=== PATIENT | female | born 1945 | race Caucasian/White ===

== ENCOUNTER 2017-06-18 08:03 | Emergency (ER) | payer OTHER ==
[~2017-06-18] VITALS: Ht 160 cm; Wt 81.6 kg
[2017-06-18 08:03] VITALS: BP_SYST 161
[~2017-06-18 08:03] MED LIST: ZOLP10TA2 PO
[2017-06-18] MEDS ORDERED: KETOROLAC TROMETHAMINE 60 MG/2 ML VIAL IM ONE (09:15)
[2017-06-18 09:20] LABS: BILIRUBIN,URINE NEGATIVE (NEGATIVE); BLOOD, URINE NEGATIVE (NEGATIVE); CLARITY/URINE CLEAR (CLEAR); COLOR,URINE YELLOW (YELLOW); GLUCOSE,URINE NEGATIVE (NEGATIVE); KETONES,URINE NEGATIVE (NEGATIVE); LEUKOCYTE ESTERASE ,URINE NEGATIVE (NEGATIVE); NITRITE, URINE NEGATIVE (NEGATIVE); PH,URINE 5.5 (5.0-8.0); PROTEIN URINE NEGATIVE (NEGATIVE); UROBILINOGEN,URINE 0.2 (0.2-1.0)
[2017-06-18 09:54] VITALS: BP_SYST 145
== END 2017-06-18 09:53 | disposition home or self-care (01) ==
LOC: SED 08:03
DX: M54.5 Low back pain (principal); E78.5 Hyperlipidemia, unspecified
CPT/HCPCS: 81003; 96372; 99283; J1885

== ENCOUNTER 2019-10-15 12:19 | Emergency (ER) | payer OTHER ==
[~2019-10-15] VITALS: Ht 157.5 cm; Wt 74.8 kg
[2019-10-15 12:19] VITALS: BP_SYST 142
--- NOTE | 2019-10-15 12:32 | NUR ---
Patient triaged and placed in waiting room. VSS and patient appears in no acute distress at this time. Awaiting available bed, and MD notified of need for MSE.
--- NOTE | 2019-10-15 13:00 | NUR ---
Patient is awake, alert, and oriented x4. Patient reports waking up feeling dizzy, she consulted [employer], then became worried that she was having a stroke, and drove to the ER. NIH Stroke scale performed with a score of 0.
--- NOTE | 2019-10-15 13:00 | NUR ---
Patient to [facility] for evaluation. Side rails up.
[2019-10-15 13:38] LABS: BASOPHILS # (AUTO) 0.1 K/uL (0.0-0.2); EOSINOPHILS # (AUTO) 0.2 K/uL (0.0-0.4); LYMPHOCYTES # (AUTO) 2.1 K/uL (1.0-5.5); LYMPHOCYTES % (AUTO) 30.5 % (20.5-51.5)
[2019-10-15 13:46] LABS: ANION GAP 7 (5-15); CALCIUM 8.7 mg/dL (8.4-11.0); CHLORIDE 105 mmol/L (98-107); CREATININE 0.78 mg/dL (0.55-1.30); GLUCOSE 111 mg/dL (70-99); SODIUM SERUM 139 mmol/L (136-145); UREA NITROGEN, BLOOD 21 mg/dL (8-21)
[2019-10-15 13:48] LABS: BASOPHILS % (AUTO) 1.6 % (0.0-2.0); EOSINOPHILS % (AUTO) 2.9 % (0.0-4.0); HEMATOCRIT 40.6 % (36-48); HEMOGLOBIN 13.6 g/dL (12.0-16.0); MEAN CORPUSCULAR HEMOGLOBIN 32 pg (27-31); MEAN CORPUSCULAR HGB CONC 34 % (32-36); MEAN CORPUSCULAR VOLUME 95 fL (79.0-98.0); MONOCYTES # (AUTO) 0.7 K/uL (0.0-1.0); MONOCYTES % (AUTO) 10.5 % (1.7-9.3); NEUTROPHILS # (AUTO) 3.8 K/uL (1.8-7.7); NEUTROPHILS % (AUTO) 54.5 % (40.0-70.0); PLATELET COUNT (AUTO) 174 K/uL (130-430); RED BLOOD CELL COUNT(AUTO) 4.26 MIL/uL (4.2-6.2); RED CELL DISTRIBUTION WIDTH 13.9 % (9.0-15.0)
[2019-10-15 13:54] LABS: ALANINE AMINOTRANSFERASE 31 U/L (12-78); ALBUMIN 3.8 g/dL (3.4-4.8); ASPARTATE AMINOTRANSFERASE 20 U/L (10-37); TOTAL BILIRUBIN 0.7 mg/dL (0.0-1.0)
--- NOTE | 2019-10-15 14:30 | NUR ---
ER Dr. Chou at bedside examining patient.
[2019-10-15] MEDS ORDERED: KETOROLAC TROMETHAMINE 30 MG VIAL IM ONE (14:45)
[2019-10-15 14:58] VITALS: BP_SYST 142
--- NOTE | 2019-10-15 14:58 | NUR ---
Patient given written and verbal discharge instructions and verbalizes understanding. ER MD discussed with patient the results and treatment provided. Patient in stable condition. ID arm band removed. Rx of robaxin given. Patient educated on pain management and to follow up with PMD. Pain Scale 5/10, Dr. Chou is aware. Opportunity for questions provided and answered. Medication side effect fact sheet provided.
== END 2019-10-15 14:58 | disposition home or self-care (01) ==
LOC: SED 12:19
DX: G44.209 Tension-type headache, unspecified, not intractable (principal)
CPT/HCPCS: 36415; 70450; 80053; 81002; 84484; 85025; 93005; 96372; 99285; J1885

== ENCOUNTER 2022-02-01 09:14 | Emergency (ER) | payer OTHER ==
[~2022-02-01] VITALS: Ht 162.6 cm; Wt 85.3 kg
[~2022-02-01 09:14] MED LIST changes: +ASA81 PO; +PRED20TA PO; +PRO40 PO
[2022-02-01 09:40] VITALS: BP_SYST 141
--- NOTE | 2022-02-01 09:50 | NUR ---
76 YR OLD FEMALE WITH COMPLAINT OF CHEST WALL PAIN WITH DIFFICULTY TAAKING A DEEP BREATH AFTER EXCERSING IN A POOL FOUR DAUS AGO. PT STATES SHE FEELS SORE AND IS CONCERNED ABOUT BRUISING AND PAIN. PT DENIES ANY NAUSEA OR VOMITING. PT PLACED IN GOWN, PENDING MD EVALUATION.
[2022-02-01 10:44] LABS: BASOPHILS % (AUTO) 0.4 % (0.0-2.0); EOSINOPHILS # (AUTO) 0.2 K/uL (0.0-0.4); EOSINOPHILS % (AUTO) 1.7 % (0.0-4.0); HEMATOCRIT 34.7 % (36-48); HEMOGLOBIN 11.7 g/dL (12.0-16.0); LYMPHOCYTES # (AUTO) 1.8 K/uL (1.0-5.5); LYMPHOCYTES % (AUTO) 19.2 % (20.5-51.5); MEAN CORPUSCULAR HEMOGLOBIN 36 pg (27-31); MEAN CORPUSCULAR HGB CONC 34 % (32-36); MEAN CORPUSCULAR VOLUME 106 fL (79.0-98.0); MONOCYTES # (AUTO) 0.8 K/uL (0.0-1.0); MONOCYTES % (AUTO) 8.3 % (1.7-9.3); NEUTROPHILS # (AUTO) 6.6 K/uL (1.8-7.7); NEUTROPHILS % (AUTO) 70.4 % (40.0-70.0); PLATELET COUNT (AUTO) 219 K/uL (130-430); RED BLOOD CELL COUNT(AUTO) 3.27 MIL/uL (4.2-6.2); WHITE BLOOD COUNT (AUTO) 9.4 K/uL (4.8-10.8)
--- NOTE | 2022-02-01 11:20 | NUR ---
Pt ambulated to room 5.
--- NOTE | 2022-02-01 11:45 | NUR ---
Dr. Govea at bedside to assess pt.
[2022-02-01] MEDS ORDERED: KETOROLAC TROMETHAMINE 60 MG/2 ML VIAL IM ONE (12:00)
[2022-02-01 12:41] LABS: ANION GAP 8 (5-15); CHLORIDE 103 mmol/L (98-107); CREATININE 1.05 mg/dL (0.55-1.30); GLUCOSE 119 mg/dL (70-99); POTASSIUM 4.6 mmol/L (3.5-5.1); SODIUM SERUM 139 mmol/L (136-145); UREA NITROGEN, BLOOD 26 mg/dL (8-21)
[2022-02-01 12:49] LABS: ALANINE AMINOTRANSFERASE 31 U/L (12-78); ALBUMIN 3.9 g/dL (3.4-4.8); ASPARTATE AMINOTRANSFERASE 25 U/L (10-37); TOTAL BILIRUBIN 0.4 mg/dL (0.0-1.0)
[2022-02-01] MEDS ORDERED: NEU300 PO ×2 (12:56→13:53)
[2022-02-01] MEDS ORDERED: LIDO1ADH22 TP (12:56)
[2022-02-01] MEDS ORDERED: ACET-2634 PO ×2 (12:56→13:53)
[2022-02-01] MEDS ORDERED: NAPR-688 PO ×2 (12:56→13:53)
[2022-02-01] MEDS ORDERED: LIDO1ADH77 TD (13:53)
[2022-02-01 14:00] VITALS: BP_SYST 134
--- NOTE | 2022-02-01 14:02 | NUR ---
Patient given written and verbal discharge instructions and verbalizes understanding. ER MD discussed with patient the results and treatment provided. Patient in stable condition. ID arm band removed. Rx of lidocaine patch, tylenol, naproxen, gabapentin given. Patient educated on pain management and to follow up with PMD. Pain Scale . Opportunity for questions provided and answered. Medication side effect fact sheet provided.
== END 2022-02-01 11:20 | disposition home or self-care (01) ==
LOC: SED 09:14
DX: R07.89 Other chest pain (principal); E78.5 Hyperlipidemia, unspecified; M35.3 Polymyalgia rheumatica; M79.604 Pain in right leg; M79.605 Pain in left leg; Z79.899 Other long term (current) drug therapy
CPT/HCPCS: 36415; 71045; 80053; 84484; 85025; 93005; 96372; 99285; J1885

== ENCOUNTER 2022-05-07 18:22 | Emergency (ER) | payer OTHER ==
[~2022-05-07] VITALS: Ht 160 cm; Wt 79.4 kg
[~2022-05-07 18:22] MED LIST changes: +ACET-2634 PO; +LIDO1ADH22 TP; +LIDO1ADH77 TD; +NAPR-688 PO; +NEU300 PO
[2022-05-07 18:24] VITALS: BP_SYST 125
[2022-05-07] MEDS ORDERED: MORPHINE 4 MG INJ. 4 MG/ML VIAL IVP ONE (19:45)
[2022-05-07 20:08] LABS: BASOPHILS # (AUTO) 0.1 K/uL (0.0-0.2); BASOPHILS % (AUTO) 1.1 % (0.0-2.0); EOSINOPHILS # (AUTO) 0.1 K/uL (0.0-0.4); EOSINOPHILS % (AUTO) 0.9 % (0.0-4.0); HEMATOCRIT 32.8 % (36-48); LYMPHOCYTES # (AUTO) 2.1 K/uL (1.0-5.5); LYMPHOCYTES % (AUTO) 22.5 % (20.5-51.5); MEAN CORPUSCULAR VOLUME 102 fL (79.0-98.0); MONOCYTES % (AUTO) 10.8 % (1.7-9.3); NEUTROPHILS # (AUTO) 6.2 K/uL (1.8-7.7); NEUTROPHILS % (AUTO) 64.7 % (40.0-70.0); PLATELET COUNT (AUTO) 239 K/uL (130-430); RED BLOOD CELL COUNT(AUTO) 3.23 MIL/uL (4.2-6.2); RED CELL DISTRIBUTION WIDTH 13.5 % (9.0-15.0); WHITE BLOOD COUNT (AUTO) 9.5 K/uL (4.8-10.8)
[2022-05-07 20:22] LABS: ANION GAP 7 (5-15); CHLORIDE 102 mmol/L (98-107); CREATININE 1.32 mg/dL (0.55-1.30); GLUCOSE 106 mg/dL (70-99); POTASSIUM 4.7 mmol/L (3.5-5.1); SODIUM SERUM 138 mmol/L (136-145); UREA NITROGEN, BLOOD 33 mg/dL (8-21)
[2022-05-07 20:28] LABS: ALANINE AMINOTRANSFERASE 34 U/L (12-78); ALBUMIN 3.7 g/dL (3.4-4.8); ASPARTATE AMINOTRANSFERASE 16 U/L (10-37); TOTAL BILIRUBIN 0.6 mg/dL (0.0-1.0)
[2022-05-07 20:33] LABS: INR 1.1 (0.8-1.2); PROTHROMBIN TIME 10.9 SECS (9.5-12.5)
[2022-05-07] MEDS ORDERED: MANNITOL 25% 12.5GM/50 ML VIAL IVP ONE (21:45)
--- NOTE | 2022-05-07 21:45 | NUR ---
FRITZ DANGELO Kwaw at bedside assessing patient.
--- NOTE | 2022-05-07 21:55 | NUR ---
Received report from ROSAUAR Vergara; assuming care of patient at this time.
--- NOTE | 2022-05-07 21:58 | NUR ---
Per ER MD David VO; 12.5gm Mannitol to be held and not given to this patient.
--- NOTE | 2022-05-07 21:58 | NUR ---
TWO IV'S placed at this time. Both are # 22 gauges angiocaths 1st is placed to right forearm and 2nd IV placed on left AC. Use of asceptic technique. Opsite placed over site. Blood return noted. Flushed with 10 cc of normal saline. No evidence of infiltration noted. Patient tolerated well.
[2022-05-07] MEDS ORDERED: NACL 0.9% 1,000 ML IV ONE ×2 (22:30→23:45)
[2022-05-07] MEDS ORDERED: MORPHINE 4 MG INJ. 4 MG/ML VIAL ONE (22:36)
--- NOTE | 2022-05-07 23:21 | NUR ---
Patient resting comfortably in bed with side rails raised. Nad noted at this time.
--- NOTE | 2022-05-07 23:50 | NUR ---
Patient assisted with bedside commode.
--- NOTE | 2022-05-07 23:55 | NUR ---
Covid swab done and sent to lab.
--- NOTE | 2022-05-08 00:10 | NUR ---
Patient assisted with bedside commode at this time.
[2022-05-08] MEDS ORDERED: MORPHINE 4 MG INJ. 4 MG/ML VIAL IVP ONE (00:30)
--- NOTE | 2022-05-08 03:25 | NUR ---
Received call from Tammy from [facility]; who gave patient's room number 262A and phone number , to give report to receiving RN at [facility].
--- NOTE | 2022-05-08 03:46 | NUR ---
Called [facility] and gave report to Mariam Carreno RN. Patient is to go throught [facility] ED to register prior to going to room 262A.
[2022-05-08 04:40] VITALS: BP_SYST 129
--- NOTE | 2022-05-08 04:40 | NUR ---
Patient to be transferred to [facility]. Is being transferred due to higher level of care. Receiving facility has accepting physician and available space. ER physician has signed transfer form. Patient or responsible green party has agreed to transfer and signed form. Patient belongings inventoried and will be sent with patient. Copy of nursing notes, lab reports, EKG, Physicians Orders and X-rays to be sent with patient. Report called to Mariam Carreno RN at receiving facility. Receiving physician is Dr Sewell. [facility] ambulance service has been called for transfer. No ETA. Patient is in stable condition when [facility] ambulance service took over patient care. Nad noted at this time.
== END 2022-05-08 04:40 | disposition short-term general hospital (02) ==
LOC: SED 18:22
DX: S06.5X0A Traumatic subdural hemorrhage without loss of consciousness, initial encounter (principal); M25.552 Pain in left hip; Z20.822 Contact with and (suspected) exposure to COVID-19; Z79.899 Other long term (current) drug therapy; W01.0XXA Fall on same level from slipping, tripping and stumbling without subsequent striking against object, initial encounter; Y93.89 Activity, other specified; Y92.89 Other specified places as the place of occurrence of the external cause; Y99.8 Other external cause status
CPT/HCPCS: 99291; 70450; 96374; 96361 ×2; 87426; 80053; 85025; 85610; 85730; 36415; 72125; 72192; 96375; 76376; J2270 ×2; J7030 ×2

== ENCOUNTER 2022-08-25 13:42 | Emergency (ER) | payer OTHER ==
[~2022-08-25] VITALS: Ht 160 cm; Wt 77.1 kg
[2022-08-25 13:59] VITALS: BP_SYST 139
--- NOTE | 2022-08-25 14:00 | NUR ---
Patient to ER bed 03 to gown for evaluation. Side rails up.
--- NOTE | 2022-08-25 14:10 | NUR ---
PT CAME TO ER BY HERSELF. C/O SWELLLING/EDEMA TO LOWER EXTREMITIES, PT SAYS PATE ARE LEFT FROM HER SOCKS ON HER LOWER LEGS.SHE DID NOT TO PUT ON A GOWN DUE TO UNCERTAINTY OF ER STAY. PT VITAL SIGNS ARE STABLE. 133/51MMHG 96%SPO2 76HR 17RR ROOM AIR.
--- NOTE | 2022-08-25 14:20 | NUR ---
WAS AT BEDSIDE EVALUATED PT.
[2022-08-25 14:59] LABS: BASOPHILS # (AUTO) 0.1 K/uL (0.0-0.2); BASOPHILS % (AUTO) 1.5 % (0.0-2.0); EOSINOPHILS # (AUTO) 0.2 K/uL (0.0-0.4); EOSINOPHILS % (AUTO) 2.4 % (0.0-4.0); HEMATOCRIT 30.9 % (36-48); HEMOGLOBIN 10.4 g/dL (12.0-16.0); LYMPHOCYTES # (AUTO) 1.8 K/uL (1.0-5.5); LYMPHOCYTES % (AUTO) 24.1 % (20.5-51.5); MEAN CORPUSCULAR HEMOGLOBIN 34 pg (27-31); MEAN CORPUSCULAR HGB CONC 34 % (32-36); MEAN CORPUSCULAR VOLUME 102 fL (79.0-98.0); MONOCYTES # (AUTO) 0.9 K/uL (0.0-1.0); MONOCYTES % (AUTO) 11.8 % (1.7-9.3); NEUTROPHILS # (AUTO) 4.5 K/uL (1.8-7.7); NEUTROPHILS % (AUTO) 60.2 % (40.0-70.0); PLATELET COUNT (AUTO) 208 K/uL (130-430); RED BLOOD CELL COUNT(AUTO) 3.03 MIL/uL (4.2-6.2); RED CELL DISTRIBUTION WIDTH 16.4 % (9.0-15.0); WHITE BLOOD COUNT (AUTO) 7.4 K/uL (4.8-10.8)
[2022-08-25 15:18] LABS: ANION GAP 8 (5-15); CALCIUM 9.1 mg/dL (8.4-11.0); CHLORIDE 106 mmol/L (98-107); CREATININE 0.76 mg/dL (0.55-1.30); GLUCOSE 106 mg/dL (70-99); UREA NITROGEN, BLOOD 22 mg/dL (8-21)
[2022-08-25 15:22] LABS: ALANINE AMINOTRANSFERASE 20 U/L (12-78); ALBUMIN 3.4 g/dL (3.4-4.8); ASPARTATE AMINOTRANSFERASE 14 U/L (10-37); TOTAL BILIRUBIN 0.4 mg/dL (0.0-1.0)
[2022-08-25 15:23] LABS: C-REACTIVE PROTEIN QUANT < 0.2 mg/dL (0-0.5)
[2022-08-25 15:27] LABS: INR 1.1 (0.8-1.2); PROTHROMBIN TIME 11.1 SECS (9.5-12.5)
[2022-08-25 17:15] VITALS: BP_SYST 139
--- NOTE | 2022-08-25 17:17 | NUR ---
Patient given written and verbal discharge instructions and verbalizes understanding. ER MD discussed with patient the results and treatment provided. Patient in stable condition. ID arm band removed. No Rx given. Patient educated on pain management and to follow up with PMD. Pain Scale 0/10. Opportunity for questions provided and answered. Medication side effect fact sheet provided.
== END 2022-08-25 17:15 | disposition home or self-care (01) ==
LOC: SED 13:42
DX: R22.41 Localized swelling, mass and lump, right lower limb (principal); I10 Essential (primary) hypertension; Z79.899 Other long term (current) drug therapy
CPT/HCPCS: 36415; 71045; 73590-TC; 80053; 82550; 83880; 85025; 85610-TC; 85730-TC; 86140; 93971; 99285

== ENCOUNTER 2022-08-31 06:18 | Inpatient (IN) | payer OTHER ==
[~2022-08-31] VITALS: Ht 157.5 cm; Wt 79.4 kg
[2022-08-31 06:18] VITALS: BP_SYST 150
[2022-08-31] MEDS ORDERED: KETOROLAC TROMETHAMINE 60 MG/2 ML VIAL IM ONE (06:30)
[2022-08-31] MEDS ORDERED: MORPHINE 4 MG INJ. 4 MG/ML VIAL IVP ONE ×3 (07:30→14:00)
[2022-08-31] MEDS ORDERED: KETOROLAC TROMETHAMINE 30 MG VIAL IVP ONE (07:30)
[2022-08-31 08:01] LABS: BASOPHILS # (AUTO) 0.1 K/uL (0.0-0.2); EOSINOPHILS % (AUTO) 0.2 % (0.0-4.0); HEMATOCRIT 36.6 % (36-48); HEMOGLOBIN 11.9 g/dL (12.0-16.0); LYMPHOCYTES # (AUTO) 1.9 K/uL (1.0-5.5); MEAN CORPUSCULAR HEMOGLOBIN 33 pg (27-31); MEAN CORPUSCULAR HGB CONC 33 % (32-36); MEAN CORPUSCULAR VOLUME 102 fL (79.0-98.0); MONOCYTES # (AUTO) 0.9 K/uL (0.0-1.0); NEUTROPHILS # (AUTO) 11.5 K/uL (1.8-7.7); NEUTROPHILS % (AUTO) 79.8 % (40.0-70.0); PLATELET COUNT (AUTO) 236 K/uL (130-430); RED BLOOD CELL COUNT(AUTO) 3.59 MIL/uL (4.2-6.2); RED CELL DISTRIBUTION WIDTH 16.3 % (9.0-15.0); WHITE BLOOD COUNT (AUTO) 14.4 K/uL (4.8-10.8)
[2022-08-31 08:16] LABS: ANION GAP 13 (5-15); CALCIUM 9.6 mg/dL (8.4-11.0); CHLORIDE 103 mmol/L (98-107); CREATININE 0.95 mg/dL (0.55-1.30); GLUCOSE 120 mg/dL (70-99); UREA NITROGEN, BLOOD 23 mg/dL (8-21)
[2022-08-31 08:21] LABS: ALANINE AMINOTRANSFERASE 30 U/L (12-78); ALBUMIN 4.2 g/dL (3.4-4.8); ASPARTATE AMINOTRANSFERASE 30 U/L (10-37); TOTAL BILIRUBIN 0.5 mg/dL (0.0-1.0)
[2022-08-31] MEDS ORDERED: NAPR-1172 PO (13:51)
[2022-08-31] MEDS ORDERED: GABAPENTIN 300 MG CAPSULE PO PRN (14:15)
[2022-08-31] MEDS ORDERED: ACETAMINOPHEN 500 MG TABLET PO PRN ×2 (14:15)
[2022-08-31] MEDS ORDERED: MORPHINE 4 MG INJ. 4 MG/ML VIAL ONE (20:08)
[2022-08-31] MEDS: predniSONE 20 MG TABLET PO SCH (21:53)
[2022-08-31] MEDS: ZOLPIDEM TARTRATE 5 MG TABLET PO SCH (21:53)
[2022-08-31] MEDS: GABAPENTIN 300 MG CAPSULE PO SCH (21:53)
[2022-08-31] MEDS: NAPROXEN 250 MG TABLET PO SCH (22:06)
[2022-08-31] MEDS ORDERED: NALOXONE HCL 0.4 MG/ML AMP (NARCAN) IVP PRN (22:45)
[2022-09-01 07:19] LABS: BASOPHILS # (AUTO) 0.1 K/uL (0.0-0.2); BASOPHILS % (AUTO) 0.9 % (0.0-2.0); HEMATOCRIT 39.4 % (36-48); LYMPHOCYTES # (AUTO) 1.6 K/uL (1.0-5.5); LYMPHOCYTES % (AUTO) 17.5 % (20.5-51.5); MEAN CORPUSCULAR HEMOGLOBIN 34 pg (27-31); MEAN CORPUSCULAR HGB CONC 33 % (32-36); MEAN CORPUSCULAR VOLUME 102 fL (79.0-98.0); MONOCYTES # (AUTO) 0.5 K/uL (0.0-1.0); NEUTROPHILS # (AUTO) 7.2 K/uL (1.8-7.7); NEUTROPHILS % (AUTO) 76.6 % (40.0-70.0); PLATELET COUNT (AUTO) 253 K/uL (130-430); RED BLOOD CELL COUNT(AUTO) 3.85 MIL/uL (4.2-6.2); RED CELL DISTRIBUTION WIDTH 15.8 % (9.0-15.0); WHITE BLOOD COUNT (AUTO) 9.4 K/uL (4.8-10.8)
[2022-09-01 07:34] LABS: ANION GAP 11 (5-15); CALCIUM 9.3 mg/dL (8.4-11.0); CHLORIDE 101 mmol/L (98-107); CREATININE 0.96 mg/dL (0.55-1.30); GLUCOSE 146 mg/dL (70-99); UREA NITROGEN, BLOOD 28 mg/dL (8-21)
[2022-09-01 09:30] VITALS: BP_SYST 142
[2022-09-01 10:35] VITALS: BP_SYST 142
[2022-09-01 11:20] VITALS: BP_SYST 124
[2022-09-01] MEDS: MORPHINE 2 MG/ML INJ. SYRINGE IVP PRN ×2 (11:26→22:55)
[2022-09-01] MEDS: ASPIRIN 81 MG TAB.CHEW PO SCH (11:28)
[2022-09-01] MEDS: NAPROXEN 250 MG TABLET PO SCH ×2 (11:28→21:51)
[2022-09-01] MEDS: GABAPENTIN 300 MG CAPSULE PO SCH ×3 (11:28→21:51)
[2022-09-01] MEDS: predniSONE 20 MG TABLET PO SCH ×2 (11:28→21:49)
[2022-09-01] MEDS: PANTOPRAZOLE SODIUM 40 MG TAB PO SCH (11:29)
[2022-09-01] MEDS ORDERED: LIDOCAINE PATCH 5% 1 EA TP SCH (14:00)
[2022-09-01 16:45] VITALS: BP_SYST 127
[2022-09-01 20:00] VITALS: BP_SYST 133
[2022-09-01] MEDS: ZOLPIDEM TARTRATE 5 MG TABLET PO SCH (21:49)
[2022-09-02 00:29] VITALS: BP_SYST 139
[2022-09-02 08:00] VITALS: BP_SYST 152
[2022-09-02] MEDS ORDERED: TRAM50TA2 PO (11:17)
[2022-09-02] MEDS: NAPROXEN 250 MG TABLET PO SCH (11:20)
[2022-09-02] MEDS: PANTOPRAZOLE SODIUM 40 MG TAB PO SCH (11:20)
[2022-09-02] MEDS: ASPIRIN 81 MG TAB.CHEW PO SCH (11:21)
[2022-09-02] MEDS: predniSONE 20 MG TABLET PO SCH (11:21)
[2022-09-02] MEDS: GABAPENTIN 300 MG CAPSULE PO SCH (11:33)
[2022-09-02 12:13] VITALS: BP_SYST 152
== END 2022-09-02 12:45 | disposition home health service (06) | DRG 204 ==
LOC: SED 06:18 → SMU 11:20
PROVIDERS: ADMIT Specialist; ATTEND Specialist
DX: R07.81 Pleurodynia (principal); S22.32XA Fracture of one rib, left side, initial encounter for closed fracture; R65.10 Systemic inflammatory response syndrome (SIRS) of non-infectious origin without acute organ dysfunction; S22.31XA Fracture of one rib, right side, initial encounter for closed fracture; F03.90 Unspecified dementia, unspecified severity, without behavioral disturbance, psychotic disturbance, mood disturbance, and anxiety; E78.5 Hyperlipidemia, unspecified; M54.9 Dorsalgia, unspecified; I10 Essential (primary) hypertension; G62.9 Polyneuropathy, unspecified; Z20.822 Contact with and (suspected) exposure to COVID-19; Z87.81 Personal history of (healed) traumatic fracture; Z79.82 Long term (current) use of aspirin; Z79.899 Other long term (current) drug therapy; Z86.73 Personal history of transient ischemic attack (TIA), and cerebral infarction without residual deficits
CPT/HCPCS: 36415; 71250-TC; 72131; 76376; 80048; 80053; 85025; 97112-GP; 97116-GP; 99285; J1885; J2270; J7512

== ENCOUNTER 2023-02-03 07:39 | Inpatient (IN) | payer OTHER ==
[2023-02-03] VITALS (10 sets, daily range): BP systolic 130–148
[~2023-02-03] VITALS: Ht 160 cm; Wt 74.4 kg
[~2023-02-03 07:39] MED LIST changes: +NAPR-1172 PO; +TRAM50TA2 PO
[2023-02-03] MEDS ORDERED: CEFAZOLIN 2 GM IVPB PREMIX 50 ML IV ONE (08:09)
[2023-02-03] MEDS ORDERED: oxyCODONE HCL 10 MG TAB.ER.12H PO ONE ×2 (08:15→08:32)
[2023-02-03] MEDS ORDERED: TRANEXAMIC ACID 1,000 MG/10 ML VIAL IV ONE (08:15)
[2023-02-03] MEDS ORDERED: CELECOXIB 200 MG CAPSULE PO ONE (08:15)
[2023-02-03] MEDS ORDERED: GABAPENTIN 300 MG CAPSULE PO ONE (08:15)
[2023-02-03] MEDS ORDERED: SCOPOLAMINE HYDROBROMIDE 1 MG PATCH .72 H (TRANSDERM-SCOP) TD ONE ×2 (08:15→08:32)
[2023-02-03] MEDS ORDERED: CEFAZOLIN SOD 2 GM in D5W 50 ML IV ONE (08:15)
[2023-02-03] MEDS ORDERED: ACETAMINOPHEN 500 MG TABLET PO ONE (08:15)
[2023-02-03] MEDS ORDERED: ACETAMINOPHEN 500 MG TABLET ONE (08:31)
[2023-02-03] MEDS ORDERED: CELECOXIB 200 MG CAPSULE ONE (08:32)
[2023-02-03] MEDS ORDERED: GABAPENTIN 300 MG CAPSULE ONE (08:33)
[2023-02-03 08:45] LABS: BASOPHILS % (AUTO) 0.4 % (0.0-2.0); EOSINOPHILS # (AUTO) 0.2 K/uL (0.0-0.4); EOSINOPHILS % (AUTO) 2.6 % (0.0-4.0); HEMATOCRIT 35.5 % (36-48); HEMOGLOBIN 11.8 g/dL (12.0-16.0); LYMPHOCYTES # (AUTO) 2.7 K/uL (1.0-5.5); LYMPHOCYTES % (AUTO) 36.3 % (20.5-51.5); MEAN CORPUSCULAR HEMOGLOBIN 32 pg (27-31); MEAN CORPUSCULAR HGB CONC 33 % (32-36); MEAN CORPUSCULAR VOLUME 96 fL (79.0-98.0); MONOCYTES # (AUTO) 0.8 K/uL (0.0-1.0); MONOCYTES % (AUTO) 11.4 % (1.7-9.3); NEUTROPHILS # (AUTO) 3.6 K/uL (1.8-7.7); NEUTROPHILS % (AUTO) 49.3 % (40.0-70.0); PLATELET COUNT (AUTO) 187 K/uL (130-430); RED BLOOD CELL COUNT(AUTO) 3.71 MIL/uL (4.2-6.2); RED CELL DISTRIBUTION WIDTH 15.5 % (9.0-15.0); WHITE BLOOD COUNT (AUTO) 7.4 K/uL (4.8-10.8)
[2023-02-03] MEDS ORDERED: BISACODYL 10 MG/SUPPOSITORY RC PRN (10:30)
[2023-02-03] MEDS ORDERED: METOCLOPRAMIDE HCL 10 MG/2 ML VIAL IVP PRN (10:30)
[2023-02-03] MEDS ORDERED: LACTULOSE 20 GM/30 ML UDC PO PRN (10:30)
[2023-02-03] MEDS ORDERED: NALOXONE HCL 0.4 MG/ML AMP (NARCAN) IVP PRN ×5 (10:30→13:15)
[2023-02-03] MEDS ORDERED: DIPHENHYDRAMINE HCL 25 MG CAPSULE PO PRN (10:30)
[2023-02-03] MEDS ORDERED: NS 1000 ML IV.SOLN IV ONE (10:40)
[2023-02-03] MEDS ORDERED: LR 1,000 ML IV.SOLN IV ONE (10:40)
[2023-02-03] MEDS ORDERED: MIDAZOLAM HCL 2 MG/2 ML VIAL (VERSED) ONE (10:40)
[2023-02-03] MEDS ORDERED: BUPIVACAINE /PF 0.25% 30 ML VIAL INJ ONE (10:40)
[2023-02-03] MEDS ORDERED: NS IRRIG SOLN 1000 ML IR ONE (10:40)
[2023-02-03] MEDS ORDERED: VANCOMYCIN HCL 1000 MG/VIAL IV ONE (10:40)
[2023-02-03] MEDS ORDERED: TRANEXAMIC ACID 1,000 MG/10 ML VIAL ONE (10:40)
[2023-02-03] MEDS ORDERED: traMADol HCL HCL 50 MG TABLET (ULTRAM) PO PRN (11:00)
[2023-02-03] MEDS ORDERED: HYDROmorphone 1 MG/ML INJ. CARTRIDGE IVP PRN ×2 (11:00)
[2023-02-03] MEDS ORDERED: oxyCODONE HCL 5 MG TABLET PO PRN (11:00)
[2023-02-03] MEDS ORDERED: LORATADINE 10 MG TABLET PO PRN (11:00)
[2023-02-03] MEDS ORDERED: ONDANSETRON HCL 4 MG/2 ML VIAL IVP PRN ×2 (11:45→13:15)
[2023-02-03] MEDS ORDERED: LOSA25TA3 PO (12:06)
[2023-02-03] MEDS ORDERED: GABA-529 PO (12:06)
[2023-02-03] MEDS ORDERED: PRAV10TA37 PO (12:06)
[2023-02-03] MEDS ORDERED: KETOROLAC TROMETHAMINE 30 MG VIAL IVP PRN (13:15)
[2023-02-03] MEDS ORDERED: MEPERIDINE 50 MG/ML VIAL IVP PRN (13:15)
[2023-02-03] MEDS ORDERED: LR 1,000 ML IV SCH (13:15)
[2023-02-03] MEDS ORDERED: HYDROmorphone 1 MG/ML INJ. CARTRIDGE ONE (13:17)
[2023-02-03] MEDS: HYDROmorphone 1 MG/ML INJ. CARTRIDGE IVP PRN ×4 (13:19→17:08)
[2023-02-03] MEDS: KETOROLAC TROMETHAMINE 10 MG TABLET (TORADOL) PO SCH ×2 (14:00→21:57)
[2023-02-03] MEDS ORDERED: ceFAZolin SODIUM 2 GM in D5W 50 ML IV SCH (14:00)
[2023-02-03] MEDS: ACETAMINOPHEN 500 MG TABLET PO SCH ×2 (14:00→21:50)
[2023-02-03] MEDS: GABAPENTIN 300 MG CAPSULE PO SCH ×2 (17:08→21:48)
[2023-02-03] MEDS: oxyCODONE HCL 5 MG TABLET PO PRN (20:39)
[2023-02-03] MEDS ORDERED: ATORVASTATIN 10 MG TABLET PO SCH (21:00)
[2023-02-03] MEDS ORDERED: ZOLPIDEM TARTRATE 5 MG TABLET PO PRN (21:45)
[2023-02-03] MEDS: SENNOSIDES/DOCUSATE SODIUM 1 TAB TABLET(SENOKOT-S) PO SCH (21:48)
[2023-02-03] MEDS: ceFAZolin SODIUM 2 GM in D5W 50 ML IV SCH (21:51)
[2023-02-03] MEDS: NYSTATIN 15 GM TOPICAL POWDER TP SCH (21:56)
[2023-02-04 01:36] VITALS: BP_SYST 118
[2023-02-04] MEDS: ceFAZolin SODIUM 2 GM in D5W 50 ML IV SCH ×2 (05:34→12:20)
[2023-02-04] MEDS: KETOROLAC TROMETHAMINE 10 MG TABLET (TORADOL) PO SCH (06:03)
[2023-02-04] MEDS: ACETAMINOPHEN 500 MG TABLET PO SCH (06:03)
[2023-02-04 06:38] LABS: BASOPHILS # (AUTO) 0.2 K/uL (0.0-0.2); BASOPHILS % (AUTO) 1.1 % (0.0-2.0); EOSINOPHILS # (AUTO) 0.3 K/uL (0.0-0.4); EOSINOPHILS % (AUTO) 2.1 % (0.0-4.0); HEMATOCRIT 30.8 % (36-48); HEMOGLOBIN 10.3 g/dL (12.0-16.0); LYMPHOCYTES # (AUTO) 1.2 K/uL (1.0-5.5); LYMPHOCYTES % (AUTO) 8.6 % (20.5-51.5); MEAN CORPUSCULAR HEMOGLOBIN 32 pg (27-31); MEAN CORPUSCULAR HGB CONC 33 % (32-36); MEAN CORPUSCULAR VOLUME 97 fL (79.0-98.0); MONOCYTES # (AUTO) 1.7 K/uL (0.0-1.0); MONOCYTES % (AUTO) 11.9 % (1.7-9.3); NEUTROPHILS # (AUTO) 10.7 K/uL (1.8-7.7); NEUTROPHILS % (AUTO) 76.3 % (40.0-70.0); PLATELET COUNT (AUTO) 182 K/uL (130-430); RED BLOOD CELL COUNT(AUTO) 3.19 MIL/uL (4.2-6.2); RED CELL DISTRIBUTION WIDTH 15.5 % (9.0-15.0)
[2023-02-04] MEDS ORDERED: CEFA250S32 PO (06:47)
[2023-02-04] MEDS ORDERED: OXYIR5 PO (06:47)
[2023-02-04 06:55] LABS: ALANINE AMINOTRANSFERASE 19 U/L (12-78); ALBUMIN 3.3 g/dL (3.4-4.8); ANION GAP 8 (5-15); ASPARTATE AMINOTRANSFERASE 20 U/L (10-37); CALCIUM 8.7 mg/dL (8.4-11.0); CHLORIDE 102 mmol/L (98-107); CREATININE 1.09 mg/dL (0.55-1.30); GLUCOSE 109 mg/dL (70-99); TOTAL BILIRUBIN 0.9 mg/dL (0.0-1.0); UREA NITROGEN, BLOOD 25 mg/dL (8-21)
[2023-02-04 08:00] VITALS: BP_SYST 112
[2023-02-04] MEDS ORDERED: ASPIRIN 81 MG TAB.CHEW PO SCH (09:00)
[2023-02-04] MEDS ORDERED: LOSARTAN POTASSIUM 25 MG TABLET PO SCH (09:00)
[2023-02-04] MEDS: GABAPENTIN 300 MG CAPSULE PO SCH (09:15)
[2023-02-04] MEDS: SENNOSIDES/DOCUSATE SODIUM 1 TAB TABLET(SENOKOT-S) PO SCH (09:15)
[2023-02-04] MEDS: oxyCODONE HCL 5 MG TABLET PO PRN ×2 (09:17→15:56)
[2023-02-04] MEDS ORDERED: CELECOXIB 200 MG CAPSULE PO SCH (11:00)
[2023-02-04] MEDS: NYSTATIN 15 GM TOPICAL POWDER TP SCH (12:21)
[2023-02-04 13:05] VITALS: BP_SYST 127
[2023-02-04 15:21] VITALS: BP_SYST 127
[2023-02-04 18:13] VITALS: BP_SYST 102
== END 2023-02-04 17:30 | DRG 470 ==
LOC: SMU 07:39
PROVIDERS: ADMIT Student in an Organized Health Care Education/Training Program; ATTEND Student in an Organized Health Care Education/Training Program
PROC: 0SRD0J9 Replacement of Left Knee Joint with Synthetic Substitute, Cemented, Open Approach (ICD-10-PCS; principal; 2023-02-03 10:40)
DX: M17.12 Unilateral primary osteoarthritis, left knee (principal); I10 Essential (primary) hypertension; E66.3 Overweight; Z68.29 Body mass index [BMI] 29.0-29.9, adult; Z86.73 Personal history of transient ischemic attack (TIA), and cerebral infarction without residual deficits
CPT/HCPCS: 36415; 73560-TC; 80053; 85025; 86886; 86900; 86901; 87081; 88305; 88311; 96379; 97110-GP; 97163-GP; 97530-GP; C1713; C1776; J0690; J1170; J2405; J3370; J3465; J3490; J7030; J7060; J7120

== ENCOUNTER 2023-10-01 15:26 | Emergency (ER) | payer OTHER ==
[~2023-10-01 15:26] MED LIST changes: -ASA81 PO; +CEFA250S32 PO; +GABA-529 PO; +LOSA-412 PO; -NAPR-688 PO; +OXYIR5 PO; +PRAV10TA37 PO; -PRED20TA PO
[2023-10-01 15:40] VITALS: BP_SYST 165; PULSE 82; RESP 18; TEMP 97; O2SAT 98
== END 2023-10-01 18:00 | disposition home or self-care (01) ==
LOC: SED 15:26
DX: S09.90XA Unspecified injury of head, initial encounter (principal); I10 Essential (primary) hypertension; Z79.899 Other long term (current) drug therapy; W10.9XXA Fall (on) (from) unspecified stairs and steps, initial encounter; Y93.89 Activity, other specified; Y92.89 Other specified places as the place of occurrence of the external cause; Y99.8 Other external cause status
CPT/HCPCS: 70450-TC; 76376; 99284